=== PATIENT | male | born 1990 | race Caucasian/White ===

== ENCOUNTER 2022-04-13 20:46 | Emergency (ER) | payer SELFPAY ==
[2022-04-13 20:58] VITALS: TEMP 97.7; BMI 29.1
[2022-04-13] MEDS ORDERED: ARTIFICIAL TEARS (POLYVINYL ALCOHOL) OPTH DROPS OU ONE (22:26)
[2022-04-13] MEDS ORDERED: predniSONE 20 MG TABLET (UD) PO ONE (22:26)
[2022-04-13] MEDS ORDERED: predniSONE 20 MG TABLET (UD) ONE (22:49)
[2022-04-14 00:53] VITALS: BP 113/67; PULSE 85; RESP 18
== END 2022-04-14 00:53 | disposition home or self-care (01) ==
LOC: JER 20:46
DX: G51.0 Bell's palsy (principal)
CPT/HCPCS: 36415; 70450-TC; 71046-TC-FY; 86618; 93005; 93010; 99285-25